=== PATIENT | female | born 1980 | race Caucasian/White ===

== ENCOUNTER 2020-12-27 22:17 | Observation (INO) | payer OTHER ==
[~2020-12-27] VITALS: Ht 160 cm; Wt 115.7 kg
[~2020-12-27 22:17] MED LIST: ACETAMINOPHEN-1 EAC1 PO; SYNTHROID125 MC1 PO; ZOFRAN4 MG PO
[2020-12-27 22:32] VITALS: BP 148/91
[2020-12-27] MEDS ORDERED: BIRTH CONTROL (22:35)
[2020-12-27 23:22] LABS: URINE BILIRUBIN NEGATIVE (Negative); URINE BLOOD 1+ (Negative); URINE CLARITY CLEAR; URINE COLOR YELLOW; URINE GLUCOSE-RANDOM NEGATIVE (Negative); URINE KETONES NEGATIVE (Negative); URINE LEUKOCYTES-REFLEX NEGATIVE (Negative); URINE NITRITE-REFLEX NEGATIVE (Negative); URINE PROTEIN NEGATIVE (Negative); URINE SPECIFIC GRAVITY 1.025 (1.005-1.030)
[2020-12-27 23:39] LABS: BACTERIA-REFLEX None Seen /HPF (None Seen); CASTS None Seen /LPF (None Seen); CRYSTALS None Seen /LPF (None Seen); SQUAMOUS 0-3 Few /LPF (0-3); URINE RBC None Seen /HPF (0-2); URINE WBC-REFLEX None Seen /HPF (0-5)
[2020-12-28 00:48] LABS: ABSOLUTE BASOPHILS 0.1 thou/uL (0.0-0.2); ABSOLUTE LYMPHOCYTES 1.6 thou/uL (0.8-5.3); ABSOLUTE MONOCYTES 0.4 thou/uL (0.0-1.2); ABSOLUTE NEUTROPHILS 9.8 thou/uL (1.6-8.1); BASOPHILS 1.1 %; EOSINOPHILS 0.1 %; HEMATOCRIT 39.9 % (37.0-47.0); HEMOGLOBIN 13.3 gm/dL (12.0-15.0); LYMPHOCYTES 13.5 %; MCH 26.5 pg (26.0-34.0); MCHC 33.4 g/dL (28.0-37.0); MCV 79.2 fL (80.0-100.0); MONOCYTES 3.7 %; MPV 7.1 fl. (7.2-11.1); NUCLEATED RBCS 0 /100WBC; PLATELET COUNT* 336 thou/uL (150-400); POLYS 81.6 %; RBC 5.04 mil/uL (4.20-5.00); RDW-CV 15.6 % (10.5-14.5)
[2020-12-28 00:53] LABS: CALCIUM 8.6 mg/dL (8.5-10.1); CREATININE 0.8 mg/dL (0.6-1.3); POTASSIUM 4.1 mmol/L (3.5-5.1)
[2020-12-28 00:57] LABS: ALBUMIN 3.5 g/dL (3.4-5.0); TOTAL BILIRUBIN 0.5 mg/dL (<0.1-1.0); TOTAL PROTEIN 8.4 g/dL (6.4-8.2)
[2020-12-28 03:50] VITALS: BP 125/68
[2020-12-28 03:55] VITALS: BP 147/81
--- NOTE | 2020-12-28 04:54 | NUR ---
PT ARRIVED TO THE UNIT @ ABOUT 0400. A&O X 4. RA. C/O NAUSEA, PAIN 5-6. MORPHINE AND ZOFRAN GIVEN. IVF INFUISING. UP AD WILEY. NPO FOR SURGERY CONSULT. CALL LIGHT WITHIN REACH. WILL CONTINUE TO MONITOR.
[2020-12-28 07:56] VITALS: BP 151/86
[2020-12-28 12:30] VITALS: BP 117/66
--- NOTE | 2020-12-28 16:19 | NUR ---
PT UP AD WILEY WITH STEADY GAIT. NEW IV ACCESS AFTER PREVIOUS ONE WAS LEAKING. IVF INFUSING. ADVANCED TO CLEAR LIQUID DIET. TO BE NPO AFTER MIDNIGHT FOR SURGERY [place] AT 0730. PT TO HAVE BRING IN HER HOME CONTROL PILLS. ACCU CHECKS ORDERED FOR INCREASED BLOOD GLUCOSE ON LABS. DENIES NEED FOR PAIN MEDICATION. CALL LIGHT IN REACH.
[2020-12-28 17:38] VITALS: BP 137/83
[2020-12-28 20:30] VITALS: BP 95/59
[2020-12-29] VITALS: BP 135/66
[2020-12-29 02:02] VITALS: BP 135/66
[2020-12-29 04:28] LABS: CREATININE 0.9 mg/dL (0.6-1.3); MAGNESIUM 2.2 mg/dL (1.8-2.4); TOTAL BILIRUBIN 0.5 mg/dL (<0.1-1.0); TOTAL PROTEIN 7.3 g/dL (6.4-8.2)
[2020-12-29 04:31] LABS: HEMATOCRIT 37.7 % (37.0-47.0); HEMOGLOBIN 12.4 gm/dL (12.0-15.0); MCH 26.5 pg (26.0-34.0); MCHC 32.9 g/dL (28.0-37.0); MCV 80.6 fL (80.0-100.0); MPV 7.3 fl. (7.2-11.1); RBC 4.67 mil/uL (4.20-5.00); RDW-CV 15.3 % (10.5-14.5)
[2020-12-29 05:36] LABS: GLYCOHEMOGLOBIN (HGB A1C) 5.6 % (4.8-5.6)
--- NOTE | 2020-12-29 07:31 | NUR ---
Alert and oriented x 4. She is up independtly in the room. She is NPO since midnight. She is on menses and wouldn't remove underwear. She did take MS for headcahe this am. OR came and picked her up at 0700.
[2020-12-29 11:40] VITALS: BP 138/73
[2020-12-29 17:10] VITALS: BP 123/79
--- NOTE | 2020-12-29 17:16 | NUR ---
PATIENT HAD LAP CHOLEY THIS SHIFT, 4 LAP SITES NOTED. ICE TO ABD. UP MULT TIMES TO VOID, NO DIFFICULTY NOTED. IV SL DUE TO PROPER PO INTAKE. IV ABX DC'D PER DR. SYED. PATIENT TOLERATED CLEAR LIQUIDS WHEN RETURNING FROM SURGERY, ADVANCED TO LOW FAT DIET PER ORDERS. OXY IR GIVEN X 1 THIS SHIFT, PATIENT OBSERVED TO BE SLEEPING WHEN REASSESSED. PATIENT AT BEDSIDE. SDC'S IN PLACE. LAB IN AM. PATIENT HOPING TO DC SOON.
--- NOTE | 2020-12-29 19:57 | OP ---
[address] [address] OPERATIVE REPORT Name: YVETTE PASCUAL Room: [address] Matteo#: [id number] Admission: 12/28/20 Attend Phys: Boom Steele MD Discharge: Date of : 80 Report #: [id number] THIS REPORT FOR: cc: Vignesh Cabezas Bradley L. DO Harper, Charles B. III DO ~ DATE OF SURGERY: 12/29/2020 PREOPERATIVE DIAGNOSIS: Acute cholecystitis. POSTOPERATIVE DIAGNOSIS: Acute cholecystitis. PROCEDURE PERFORMED: Laparoscopic cholecystectomy. PRIMARY SURGEON: Dylan Hairston M.D. MECHANICAL MAINTENANCE TECHNICIAN: Warner Alejo PGY2 COMPLICATIONS: None. SPECIMEN: Gallbladder. ESTIMATED BLOOD LOSS: 100 mL. IMPLANTS: None. DISPOSITION: PACU to floor. INDICATIONS: The patient is a 40-year-old female who presented to the Emergency Room with complaints of postprandial right upper quadrant and epigastric pain associated with nausea and vomiting. She was found on imaging to have a large calcified gallstone on her CT scan with evidence of acute cholecystitis. Her history and laboratory and imaging findings were consistent with acute cholecystitis; therefore, she was informed of the risks and benefits of laparoscopic cholecystectomy. She was informed of the risks including but not limited to bleeding, infection, bile duct injury, bowel injury, need for reoperation, open procedure. She understood these risks and decided to proceed with surgery. TECHNIQUE: After informed consent was obtained, the patient was brought to the operating room and placed in supine position. SCDs were on and running. Preoperative antibiotics were given. General anesthesia was administered with an ET tube. The patient was prepped and draped in the usual sterile fashion. A surgical pause was held to confirm proper patient and procedure. A curvilinear infraumbilical incision was made by elevating the skin with 2 Adson's and then incising with an 11 blade. Dissection was bluntly carried [place] [address] OPERATIVE REPORT Name: ANKURYVETTE Arlette Room: [address]#: [id number] Admission: 12/28/20 Attend Phys: Boom Steele MD Discharge: Date of : 80 Report #: [id number] using S retractors. Fascia was identified, elevated 2 Kochers and incised using cautery. Peritoneum was bluntly entered using a Loretta. A finger was introduced through the defect and intra-abdominal location was confirmed. We placed a [id number] stay sutures with 0 Vicryl at the top and bottom of the fascial incision. A 12 mm Helena trocar was inserted through the fascial opening. Abdomen was insufflated. The patient was positioned head up and right side up. Three additional 5 mm ports were placed under direct visualization, 1 in the epigastrium and 2 in the right upper quadrant. The gallbladder was thick walled and acutely inflamed. Because it was so distended, we decided to aspirate the gallbladder. A laparoscopic aspiration needle was carefully inserted through the trocar into the dome of the gallbladder. About 15-20 mL of clear fluid were aspirated from the gallbladder. This facilitated grabbing the gallbladder with a locking grasper, so no further fluid was aspirated. Gallbladder was grasped and reflected cephalad. The peritoneum overlying the hepatocystic triangle was incised using cautery. This plane was developed medially as well as laterally. Immediately apparent was a large anterior artery coursing directly to the gallbladder, which was circumferentially dissected, singly clipped and divided using scissors. Once this was divided, the fibrofatty tissue of the hepatocystic triangle was exposed. There was a large inflamed lymph node on the medial aspect of the gallbladder. A single vascular stalk to this was isolated, singly clipped and divided using cautery. The cystic duct was found to be just medial to these previously divided structures. A combination of blunt dissection and cautery was used to circumferentially dissect the cystic duct. Once the cystic duct was isolated and the identity was confirmed, a 5 mm laparoscopic clip non destructive testing specialist was used to doubly clip the cystic duct just to be sure of the security of those clips. The duct was partially transected and additional 2 clips were fired across the remaining portion of the tissue. This was completely divided using scissors. There was a small posterior branch of the cystic duct artery that was bleeding. This was elevated and a single clip was used to obtain hemostasis. We then proceeded to divide the gallbladder from the liver bed. This plane was acutely edematous and her liver was quite friable, likely from fatty infiltration. She had some bleeding from her liver edge, which was controlled with cautery. The gallbladder was completely excised from the liver bed and placed aside. The liver bed was inspected. Cautery was used for hemostasis. The right upper quadrant was thoroughly irrigated and suctioned, after final hemostasis was obtained, the clips were inspected and hemostatic. There was no evidence of bile leak. The liver bed was hemostatic. We leveled the patient out, suctioned the right upper quadrant, which remained dry. All ports were removed under direct visualization. The previous stay sutures were still in place. The gallbladder was removed through the umbilical incision; however, the fascial incision needed to be extended as well as the skin to accommodate the large stones contained within the gallbladder. Once the specimen was removed, Kochers were replaced. Three additional myfxbw-av-oapue using 0 Vicryl were used to excellently approximate the fascia. The subcutaneous tissue was closed in layered fashion using 3-0 [place]ryl [place] [address] OPERATIVE REPORT Name: YVETTE PASCUAL Room: [address] Noel Felipe#: [id number] Admission: 12/28/20 Attend Phys: Boom Steele MD Discharge: Date of : 80 Report #: [id number] was closed at all sites using 4-0 Monocryl. Wounds were cleansed and dressed with Dermabond. A 50:50 mixture of 1% lidocaine and 0.25% Marcaine was injected at the incisions. The patient tolerated the procedure well without any complications. The patient was emerged from anesthesia and transferred to PACU in stable condition. <ELECTRONICALLY SIGNED> By: Dylan Hairston III, DO 12/29/20 [id number] Hairston III DO /nt
[2020-12-29 20:00] VITALS: BP 119/58
[2020-12-30] VITALS: BP 115/71
[2020-12-30 03:57] LABS: ABSOLUTE BASOPHILS 0.1 thou/uL (0.0-0.2); ABSOLUTE LYMPHOCYTES 2.4 thou/uL (0.8-5.3); ABSOLUTE MONOCYTES 0.9 thou/uL (0.0-1.2); ABSOLUTE NEUTROPHILS 7.8 thou/uL (1.6-8.1); BASOPHILS 0.5 %; EOSINOPHILS 0.1 %; HEMATOCRIT 34.8 % (37.0-47.0); HEMOGLOBIN 11.5 gm/dL (12.0-15.0); LYMPHOCYTES 21.7 %; MCH 26.5 pg (26.0-34.0); MCHC 33.2 g/dL (28.0-37.0); MCV 79.8 fL (80.0-100.0); MONOCYTES 7.8 %; MPV 7.3 fl. (7.2-11.1); NUCLEATED RBCS 0 /100WBC; PLATELET COUNT* 309 thou/uL (150-400); POLYS 69.9 %; RBC 4.36 mil/uL (4.20-5.00); RDW-CV 15.2 % (10.5-14.5); WBC 11.1 thou/uL (4.0-11.0)
[2020-12-30 03:58] LABS: POTASSIUM 3.6 mmol/L (3.5-5.1)
--- NOTE | 2020-12-30 05:34 | NUR ---
ASSUMED CARE AT 1920. ALERT AND ORIENTED. PLEASANT. OXY GIVEN FOR ABD PAIN. ABD INCISION SITES X 4 WITH DERMABOND. UP AD WILEY. PT TOLERATING FOOD AND FLUIDS WITHOUT ANY ISSUES. DENIED ANY NAUSEA/VOMITING. ATE HS SNACKS. SALINE LOCK TO RIGHT AC. RESTED QUIETLY. CALL LIGHT IN REACH.
[2020-12-30 08:15] VITALS: BP 114/70
[2020-12-30 10:43] VITALS: BP 115/71
== END 2020-12-30 11:10 | disposition home or self-care (01) ==
LOC: M.ERS 22:17 → M.2W 12-28 02:32 → M.TBA-ER 12-28 02:32 → M.2W 12-28 04:04
PROVIDERS: Emergency Medicine; Internal Medicine; Student in an Organized Health Care Education/Training Program; ADMIT Internal Medicine; ATTEND Internal Medicine
DX: K81.0 Acute cholecystitis (principal); E03.9 Hypothyroidism, unspecified; R11.2 Nausea with vomiting, unspecified; Z20.822 Contact with and (suspected) exposure to COVID-19; E66.9 Obesity, unspecified; Z79.899 Other long term (current) drug therapy